=== PATIENT | male | born 1965 | race Caucasian/White ===

== ENCOUNTER 2017-05-22 11:34 | Observation (INO) ==
--- NOTE | 2017-05-22 11:49 | Emergency Department Note ---
Disposition Clinical Impression: Chest pain Qualifiers: Chest pain type: unspecified Qualified Code(s): R07.9 - Chest pain, unspecified Disposition: Admitted As Inpatient Condition: Good Instructions: Chest Wall Pain in Children (ED) Forms: ED Satisfaction Letter Time of Disposition: 12:44 Chest Pain HPI - General Chief Complaint: ED Chest Pain Stated Complaint: chest pain Time Seen by Provider: 05/22/17 11:42 Source: patient, EMS Mode of arrival: EMS Limitations: no limitations Vital Signs Reviewed: Yes Nursing Notes Reviewed: Yes - History of Present Illness HPI Narrative: 52-year-old male who comes in complaining of chest discomfort and feeling worse over the last couple of days. The patient states he has a history of previous UT 4. Ice had no cardiac workup for more than a year. Patient saw his family doctor today who sent him to the ER. Pt complaint: chest pain Onset (ago): day(s) Duration: intermittent Onset: during rest, during exertion Pain Location: substernal, left chest Severity: moderate Severity scale (1-10): 8 Quality: tightness, aching Pain Radiation: none Improves with: nothing Worsens with: nothing Treatments prior to arrival chest pain: none - Related Data Previous Rx's Medication Instructions Recorded Ciprofloxacin HCl [Cipro] 500 mg PO BID #14 tab 10/30/15 Hydrocodone/Acetaminophen [[place] 1 tab PO Q6H PRN #12 tab 10/30/15 5-325 Tablet] Ondansetron ODT [Zofran ODT] 4 mg SL Q6HR PRN #14 tab.rapdis 10/30/15 metroNIDAZOLE [Flagyl] 500 mg PO TID #21 tablet 10/30/15 Cyclobenzaprine [Flexeril] 10 mg PO TID PRN #9 tablet 12/30/15 traMADol [Ultram] 50 mg PO Q6HR #8 tablet 12/30/15 Amoxicillin/Clavulanate [Augmentin] 875 mg PO BIDWM 10 Days tablet 04/02/16 Fluticasone Propionate Nasal 50 mcg NS DAILY #1 bottle 04/02/16 [Flonase] Oxymetazoline [Afrin] 1 spray NS Q12HR PRN #1 bottle 04/02/16 HYDROcodone/Acet 5/325 mg [[place] 1 tab PO Q6H PRN #7 tab 09/21/16 5-325 mg] Allergies Allergy/AdvReac Type Severity Reaction Status Date / Time aspirin [ASA] AdvReac Vomiting Verified 10/30/15 20:44 All systems ED: reviewed and negative except as stated. Constitutional: Denies: fever, chills, weakness, weight change Eyes: Denies: eye pain, eye discharge, vision change ENT ED: Denies: ear pain, throat pain, dental pain, hearing loss, epistaxis, congestion, dysphagia Cardiovascular: Reports: chest pain. Denies: palpitations, dyspnea on exertion , edema, syncope Respiratory: Denies: cough, dyspnea, wheezes, hemoptysis, stridor Gastrointestinal: Denies: abdominal pain, nausea, vomiting, diarrhea, constipation, hematemesis, melena, hematochezia Genitourinary: Denies: urgency, dysuria, frequency, hematuria Musculoskeletal: Denies: back pain, neck pain, arthralgia, myalgia Integumentary: Denies: rash, abrasion, lesions Neurological: Denies: headache, weakness, numbness, paresthesias, confusion, abnormal gait, vertigo Psychiatric: Denies: anxiety, depression, suicidal thoughts, homicidal thoughts , auditory hallucinations, visual hallucinations Endocrine: Denies: fatigue Hematological/Lymphatic: Denies: easy bleeding, easy bruising Allergic/Immunologic: Denies: facial swelling, urticaria Chest Pain PMH - Past Medical History Medical history: Reports: asthma, COPD, CVA, hyperlipidemia, hypertension, myocardial infarction, other Psychiatric history: Reports: no psych history - Social History Smoking Status: Never smoker Alcohol use: Reports: none Drug use: Reports: none Physical Exam - General Limitations: no limitations General appearance: alert, in no apparent distress - Head Head exam: atraumatic, normocephalic, normal inspection - Eye Eye exam: Present: normal appearance, PERRL, EOMI - ENT ENT exam: normal exam, normal oropharynx, mucous membranes moist - Neck Neck exam: Present: normal inspection, full ROM, trachea midline - Chest Chest inspection: Present: normal inspection - Respiratory Respiratory exam: Present: normal lung sounds bilaterally - Cardiovascular Cardiovascular exam: Present: regular rate, normal rhythm, normal heart sounds - Abdominal Exam Abdominal exam: Present: soft, Non-Tender. Absent: tenderness, distention, guarding, rebound, rigidity - Extremities Exam Extremities exam: Present: normal inspection, full ROM. Absent: tenderness, pedal edema - Expanded Lower Extremity Exam Neurovascular/Tendon exam: Present: normal capillary refill - Back Exam Back exam: Present: normal inspection, full ROM. Absent: tenderness - Neurological Exam Neurological exam: Present: alert, oriented X3 - Psychiatric Psychiatric exam: Present: normal affect, normal mood - Skin Skin exam: Present: warm, dry, intact, normal color Course - Reevaluation(s) Reevaluation #1: 52-year-old with a history of previous UT 4 comes in complaining of chest pain. Initial EKG is negative, initial troponin is negative chest x-ray is clear patient will be admitted for rule out. Time: 12:42 - Consultations Consultation #1: Discussed with . Time: 12:43 Vital Signs Temperature 0 F L 05/22/17 11:36 Pulse Rate 0 05/22/17 11:36 Respiratory Rate 18 05/22/17 11:36 Blood Pressure 0/0 05/22/17 11:36 O2 Sat by Pulse Oximetry 0 05/22/17 11:36 Temperature 0 F L 05/22/17 11:36 Pulse Rate 84 05/22/17 12:15 Respiratory Rate 20 05/22/17 12:15 Blood Pressure 145/94 05/22/17 12:15 O2 Sat by Pulse Oximetry 97 05/22/17 12:15 Oxygen Delivery Oxygen Delivery Room Air Chest Pain - Lab Data Result diagrams: 05/22/17 11:45 05/22/17 11:45 Lab Results 05/22/17 05/22/17 05/22/17 Range/Units 11:45 11:45 11:45 WBC 4.2 L (4.3-11.1) K/mcL RBC 4.85 (4.19-5.50) M/mcL Hgb 14.8 (12.9-16.9) g/dL Hct 43.2 (37.5-50.1) % MCV 89.1 (83.0-100.0) fL MCH 30.5 (28.0-33.3) pg MCHC 34.3 (31.6-35.5) g/dL RDW 12.6 (11.5-14.5) % Plt Count 184 (140-400) K/mcL MPV 11.0 (9.4-12.4) fL Immature Gran % 0.2 (0-4) % Seg Neutrophils % 60.3 % Lymphocytes % 26.1 % Monocytes % 10.0 % Eosinophils % 2.4 % Basophils % 1.0 % Neutrophils # 2.5 (1.6-8.9) K/mcL Lymphocytes # 1.1 (0.6-4.6) K/mcL Monocytes # 0.4 (0.0-1.3) K/mcL Eosinophils # 0.1 (0.0-0.6) K/mcL Basophils # 0.0 (0.0-0.2) K/mcL PT 11.5 (9.4-12.1) Seconds INR 1.1 APTT 30.4 (26.0-36.0) Seconds Sodium 138 (136-145) mEq/L Potassium 4.3 (3.5-5.1) mEq/L Chloride 109 H (98-107) mEq/L Carbon Dioxide 25 (23-29) mEq/L BUN 12 (6-20) mg/dL Creatinine 1.05 (0.70-1.30) mg/dL Est GFR ( Amer) > 60 (> 60) Est GFR (Non-Af Amer) > 60 (> 60) BUN/Creatinine Ratio 11 (6-26) Glucose 125 H (70-105) mg/dL Calculated Osmolality 287 (280-300) Calcium 9.5 (8.6-10.3) mg/dL Troponin I < 0.03 (< 0.04) ng/mL - EKG Data EKG attestation: Yes I reviewed and interpreted this EKG. EKG shows normal: sinus rhythm Rate: normal Rhythm: NSR Hood/QRS: normal Interpretation: no acute changes Heart Score - Score History: Moderately Suspicious EKG: Normal Age: 45-65 Risk Factors: Equal/Greater than 3 risk factor or history of atherosclerotic disease Troponin: Less than normal limit HEART Score Total: 4
[2017-05-22 11:59] LABS: Eosinophils # 0.1 K/mcL (0.0-0.6); Eosinophils % 2.4 %; Hematocrit 43.2 % (37.5-50.1); Hemoglobin 14.8 g/dL (12.9-16.9); Immature Granulocytes % 0.2 % (0-4); Lymphocytes # 1.1 K/mcL (0.6-4.6); Lymphocytes % 26.1 %; Mean Corpuscular HGB Conc 34.3 g/dL (31.6-35.5); Mean Corpuscular Hemoglobin 30.5 pg (28.0-33.3); Mean Corpuscular Volume 89.1 fL (83.0-100.0); Monocytes # 0.4 K/mcL (0.0-1.3); Neutrophils # 2.5 K/mcL (1.6-8.9); Platelet Count 184 K/mcL (140-400); Red Blood Count 4.85 M/mcL (4.19-5.50); Red Cell Distribution Width 12.6 % (11.5-14.5); Segmented Neutrophils % 60.3 %
[2017-05-22 12:04] LABS: INR 1.1; Prothrombin Time 11.5 Seconds (9.4-12.1)
[2017-05-22 12:07] LABS: Activated Partial Thrombo Time 30.4 Seconds (26.0-36.0)
[2017-05-22 12:20] LABS: BUN/Creatinine Ratio 11 (6-26); Blood Urea Nitrogen 12 mg/dL (6-20); Calcium 9.5 mg/dL (8.6-10.3); Carbon Dioxide 25 mEq/L (23-29); Chloride 109 mEq/L (98-107); Glucose 125 mg/dL (70-105); Osmolality,Calculated 287 (280-300); Potassium 4.3 mEq/L (3.5-5.1); Sodium 138 mEq/L (136-145); Troponin I < 0.03 ng/mL (< 0.04); eGFR For African Americans > 60 (> 60); eGFR For Non-African Americans > 60 (> 60)
[2017-05-22] MEDS ORDERED: Acetaminophen 325 MG TABLET PO PRN (13:03)
[2017-05-22] MEDS ORDERED: *HR* Promethazine 25 MG/ML VIAL IVP PRN (13:03)
[2017-05-22] MEDS ORDERED: Naloxone 0.4 MG/ML INJ IVP PRN (13:03)
[2017-05-22] MEDS ORDERED: Ondansetron 4 MG/2 ML VIAL IVP PRN (13:03)
[2017-05-22] MEDS ORDERED: Nitroglycerin 0.4 MG TAB.SUBL SL PRN (13:06)
--- NOTE | 2017-05-22 13:27 | Internal Med History&Physical ---
Date of Encounter: 05/22/17 Time of Encounter: 12:20 Assessment and Plan (1) Chest pain Current visit: Yes Status: Acute Will admit the pt into Tele for observation Will place pt on compliance monitor check serial troponin so far negative troponin EKG reviewed showed NSR, no acute ischemic changes noticed Cont pt on Plavix and BB Metoprolol Cont Nitro PRN for pain Will check FLP in AM Will get stress test in AM since pt is high risk for ACS Pt did mention previous [facility]'s with out any interventions, unable to find any records here.. Consulted Card for further eval Qualifiers: Chest pain type: unspecified Qualified Code(s): R07.9 - Chest pain, unspecified (2) HTN (hypertension) Current visit: Yes Status: Acute Stable with home meds Resumed home meds Qualifiers: Qualified Code(s): I10 - Essential (primary) hypertension (3) Obesity (BMI 30-39.9) Current visit: Yes Status: Acute Counseled to loose weight (4) HLD (hyperlipidemia) Current visit: Yes Status: Acute on Statin Qualifiers: Hyperlipidemia type: unspecified Qualified Code(s): E78.5 - Hyperlipidemia , unspecified (5) CAD (coronary artery disease) Current visit: Yes Status: Acute Card consulted Resumed all home meds Qualifiers: Coronary Disease-Associated Artery/Lesion type: [place] artery Associated angina: with stable angina Qualified Code(s): I25.118 - Atherosclerotic heart disease of [place] coronary artery with other forms of angina pectoris Internal Medicine - H&P: HPI Chief complaint: Chest pain Admitted From: Emergency Dept Plans for Post Hospital Care: Home History of present illness: Mr. Tracy is a 52 year old male with known CAD, HTN, HLD and Morbid Obesity who presented to ER with intermittent left chest wall pain since last 2-3 days. Pt stated he does have 5/10 , chest pressure , squeezing like pain, felt someone siting on his chest, radiating to his left arm, not associated with diaphoresis and his pain relived with SL Nitro here in the ER. Pt denied any recent travel, denied any cold / cough with expectoration. His pain is little better now. Past Med Surg Social Fam HX - Past Medical History Medical history: asthma, COPD, CVA, hyperlipidemia, hypertension, myocardial infarction, other Psychiatric history: no psych history - Past Surgical History Surgical History: no surgical history - Social History Smoking Status: Never smoker Smokeless Tobacco Status: No Alcohol use: none Drug use: none - Additional Family History Additional family history: Family hsitory reviewed and non contribuitory to current problem. Internal Medicine - H&P: Meds Albuterol Sulfate [Ventolin Hfa] 2 puff IH Q4H PRN 05/22/17 [History] Atorvastatin [Lipitor] 40 mg PO HS 05/22/17 [History] Clopidogrel [Plavix] 75 mg PO DAILY 05/22/17 [History] Metoprolol XL (24 HR) Succ [Toprol XL] 25 mg PO DAILY 05/22/17 [History] 3 Allergy/AdvReac Type Severity Reaction Status Date / Time aspirin [ASA] AdvReac Vomiting Verified 10/30/15 20:44 All Systems PM: A 10-system review of systems was performed and is negative for pertinent findings except as documented above in the HPI. Review of systems: All the systems are reviewed everything is benign except the systems and symptoms I mentioned in the history of present illness - Constitutional Vitals: Temp Pulse Resp BP Pulse Ox 0 F L 84 20 145/94 97 05/22/17 11:36 05/22/17 12:15 05/22/17 12:15 05/22/17 12:15 05/22/17 12:15 General appearance: Present: cooperative, A&O X 3, no acute distress, answers questions appropriately - Head Head exam: Present: atraumatic, normal inspection - Neck Neck exam general surgery: Present: supple - Respiratory Respiratory exam: Present: decreased breath sounds. Absent: rales, respiratory distress, rhonchi, wheezes - Cardiovascular Cardiovascular exam: Present: RRR, +S1, +S2. Absent: tachycardia - GI/Abdominal GI/Abdominal exam: Present: normal bowel sounds, soft. Absent: rebound, rigid, tenderness - Extremities Exam Extremities exam: Absent: calf tenderness, pedal edema, tenderness - Back Exam Back exam: Absent: CVA tenderness (L), CVA tenderness (R) - Neurological Exam Neurological exam: Present: alert, oriented X3 - Psychiatric Psychiatric exam: Present: normal affect, normal mood - Skin Skin exam: Absent: rash Internal Med - H&P Results - Labs CBC & Chem 7: 05/22/17 11:45 05/22/17 11:45 Labs: Short CBC 05/22/17 Range/Units 11:45 WBC 4.2 L (4.3-11.1) K/mcL Hgb 14.8 (12.9-16.9) g/dL Hct 43.2 (37.5-50.1) % Plt Count 184 (140-400) K/mcL Neutrophils # 2.5 (1.6-8.9) K/mcL BMP 05/22/17 11:45 Sodium 138 Potassium 4.3 Chloride 109 H Carbon Dioxide 25 BUN 12 Creatinine 1.05 Glucose 125 H Calcium 9.5 Cardiac Enzymes 05/22/17 Range/Units 11:45 Troponin I < 0.03 (< 0.04) ng/mL - Impressions ITS Impressions Chest X-Ray 05/22/17 11:45 IMPRESSION: No acute cardiopulmonary disease. D/ / Chris Lynn MD / Chris Lynn MD Interpreting Provider: Chris Lynn MD
--- NOTE | 2017-05-22 14:37 | Electrocardiograph Report ---
[facility] [facility] Test Date: 2017-05-22 Pat Name: Raimundo Tracy Department: 102 Room: Gender: M Siene Maker: Msc : 1965 Requested By: Manas Flannery Order Number: [id number] Reading MD: Keith Mary MD Measurements Intervals [place] Rate: 80 P: 35 NH: 189 QRS: 14 QRSD: 90 T: 33 QT: 342 QTc: 378 Interpretive Statements SINUS RHYTHM wnl Electronically Signed On 05-22-2017 14:35:18 EST by Keith Mary MD
[2017-05-22] MEDS: Metoprolol XL (24 HR) Succ 25 MG TAB.ER.24H PO SCH (18:52)
[2017-05-22] MEDS: *HR* HYDROcodone/Acet 5/325 mg TABLET PO PRN (23:30)
[2017-05-23 01:22] LABS: Chol/HDL Ratio 4.9 (0-4.9)
[2017-05-23] MEDS ORDERED: Regadenoson 0.4 MG/5 ML SYRINGE IVP ONE (07:30)
[2017-05-23] MEDS: Metoprolol XL (24 HR) Succ 25 MG TAB.ER.24H PO SCH (09:40)
--- NOTE | 2017-05-23 14:50 | Internal Med Progress Note ---
Date of Encounter: 05/23/17 Time of Encounter: 14:49 - Assessment and plan (1) Chest pain Current Visit: Yes Status: Acute Assessment and plan: presented with chest pressure for 2-3 days prior to arrival. Has known CAD as noted below. Serial troponins negative. EKG without acute ST changes. Stress test negative for ischemia or infarct. Echocardiogram pending. Adding isosorbide. Obtaining outside hospital left heart catheterization report. Consult cardiology if chest pain persist despite long-acting nitrate Qualifiers: Chest pain type: unspecified Qualified Code(s): R07.9 - Chest pain, unspecified (2) CAD (coronary artery disease) Current Visit: Yes Status: Acute Assessment and plan: hx 4 [address]Is[address] with [address] Victor. Says he has LHC approx one year ago at [facility] [place]. Now with CP as noted above. Stress test negative for ischemia or infarct. Continues to complain of persistent chest pressure. Continue home Plavix, statin, BB. Add isosorbide. Obtain outside hospital left heart catheter records. Consult cardiology if chest pain persists Qualifiers: Coronary Disease-Associated Artery/Lesion type: [place] artery Associated angina: with stable angina Qualified Code(s): I25.118 - Atherosclerotic heart disease of [place] coronary artery with other forms of angina pectoris (3) HLD (hyperlipidemia) Current Visit: Yes Status: Acute Assessment and plan: hx. Cont home statin Qualifiers: Hyperlipidemia type: unspecified Qualified Code(s): E78.5 - Hyperlipidemia , unspecified (4) HTN (hypertension) Current Visit: Yes Status: Acute Assessment and plan: per hx. BP controlled. Cont home BP medication. Monitor BP and titrate PRN Qualifiers: Qualified Code(s): I10 - Essential (primary) hypertension (5) DVT prophylaxis Current Visit: Yes Status: Acute Assessment and plan: heparin - Subjective Interval history: Seen and examined at bedside. Patient is new to me, information obtained from chart review and patient report. Says he still having intermittent chest pressure; located to left chest and radiates to left arm at times. Laying on the left side improves chest pressure, nothing makes worse. Denies shortness of breath. - Constitutional Vitals: Temp Pulse Resp BP Pulse Ox 97.5 F L 112 18 148/94 98 05/23/17 11:06 05/23/17 11:06 05/23/17 11:06 05/23/17 11:06 05/23/17 11:06 General appearance: Present: cooperative, A&O X 3, no acute distress, answers questions appropriately - Head Head exam: Present: atraumatic, normocephalic - Eye Eye exam: Present: PERRL, conjuntiva pink, sclera anicteric Pupils: Present: PERRL - Neck Neck exam general surgery: Present: supple, trachea midline. Absent: lymphadenopathy - Respiratory Respiratory exam: Present: CTAB. Absent: accessory muscle use, rales, rhonchi, wheezes - Cardiovascular Cardiovascular exam: Present: RRR, +S1, +S2. Absent: diastolic murmur, gallop, rubs, systolic murmur - GI/Abdominal GI/Abdominal exam: Present: normal bowel sounds, soft, no peritoneal signs. Absent: distended, tenderness - Extremities Exam Extremities exam: Present: warm, radial pulses palpable and symmetrical. Absent : calf tenderness, cyanotic, pedal edema - Neurological Exam Neurological exam: Present: CN II-XII intact, oriented X3, no focal deficits. Absent: pronater drift, facial droop, speech deficit - Skin Skin exam: Present: dry, intact Internal Medicine: Result - Labs CBC & Chem 7: 05/22/17 11:45 05/22/17 11:45 Labs: Cardiac Enzymes 05/22/17 05/23/17 Range/Units 17:31 00:17 Troponin I < 0.03 < 0.03 (< 0.04) ng/mL - ABG Interpretation ABG results: PT/INR, D-dimer PT 11.5 Seconds (9.4-12.1) 05/22/17 11:45 Consult Discharge Plan - Plan Referrals: Cali Molina MD [Primary Care Provider] -
[2017-05-23] MEDS: Isosorbide MONOnitrate (24 HR) 30 MG TAB.ER.24H PO SCH (17:40)
[2017-05-23] MEDS: *HR* Heparin 5,000 UNIT/ML VIAL SQ SCH (21:26)
[2017-05-23] MEDS: *HR* HYDROcodone/Acet 5/325 mg TABLET PO PRN (21:30)
[2017-05-24] MEDS: *HR* Heparin 5,000 UNIT/ML VIAL SQ SCH (05:20)
[2017-05-24] MEDS: Isosorbide MONOnitrate (24 HR) 30 MG TAB.ER.24H PO SCH (09:12)
[2017-05-24] MEDS: Metoprolol XL (24 HR) Succ 25 MG TAB.ER.24H PO SCH (09:12)
[2017-05-24] MEDS: *HR* HYDROcodone/Acet 5/325 mg TABLET PO PRN (09:18)
--- NOTE | 2017-05-24 15:46 | Discharge Summary ---
Date of Encounter: 05/24/17 Time of Encounter: 15:42 - Discharge Diagnosis (1) Chest pain Priority: Primary Status: Acute Comments: presented with chest pressure for 2-3 days prior to arrival. Has known CAD as noted below. Serial troponins negative. EKG without acute ST changes. TTE with preserved EF, mild diastolic dysfunction no wall motion abnormalities. Stress test negative for ischemia or infarct. He was started on isosorbide with resolution of chest pain. Discussed medical management versus cardiology consultation and patient preferred to continue with medical management. We will follow up with cardiology outpatient. Will likely benefit from [facility] if chest pain persists Qualifiers: Chest pain type: unspecified Qualified Code(s): R07.9 - Chest pain, unspecified (2) CAD (coronary artery disease) Priority: Primary Status: Acute Comments: patient reports 4 prior MIs. [address] with [address] Victor. Per chart review, L 2001 at outside hospital showed non-obstructive CAD. Now with chest pain as noted above. ACS ruled out with negative serial troponins, no acute ST changes on EKG. TTE with preserved EF, mild diastolic dysfunction and no wall motion abnormalities. Stress test negative for ischemia or infarct. Isosorbide started with resolution of chest pain. Continue home Plavix, statin, BB. Add isosorbide. Follow-up with primary sql database programmer within 2 weeks. Qualifiers: Coronary Disease-Associated Artery/Lesion type: [place] artery Associated angina: with stable angina Qualified Code(s): I25.118 - Atherosclerotic heart disease of [place] coronary artery with other forms of angina pectoris (3) HLD (hyperlipidemia) Priority: Secondary Status: Acute Comments: per hx. Cont statin Qualifiers: Hyperlipidemia type: unspecified Qualified Code(s): E78.5 - Hyperlipidemia , unspecified (4) HTN (hypertension) Priority: Secondary Status: Acute Comments: per hx. BP controlled. Cont medication Qualifiers: Qualified Code(s): I10 - Essential (primary) hypertension (5) SSS (sick sinus syndrome) Priority: Secondary Status: Acute Comments: per hx. Has PPM. Follow-up with Cardiology outpatient Hospital course: Mr. Tracy is a 52 year old male with PMH CAD and hypertension who presented to [facility] on 05/22/2017 with complaints of chest pain. He was placed in observation status for further workup and treatment. ACS was ruled out with negative serial troponins, on acute EKG, unremarkable echocardiogram and negative stress test. He was started on isosorbide with resolution and chest pain. He was discharged home in stable condition with outpatient follow-up. Please see assessment and plan for further details. Discharge discussed with: patient - Time Spent with Patient Total time spent providing and/or coordinating discharge services: - Discharge Medications Prescriptions: Isosorbide MONOnitrate (24 HR) [Imdur] 30 mg PO DAILY #30 tab.er.24h Home Medications: Albuterol Sulfate [Ventolin Hfa] 2 puff IH Q4H PRN 05/22/17 [History] Atorvastatin [Lipitor] 40 mg PO HS 05/22/17 [History] Clopidogrel [Plavix] 75 mg PO DAILY 05/22/17 [History] Metoprolol XL (24 HR) Succ [Toprol Xl] 25 mg PO DAILY 05/22/17 [History] Isosorbide MONOnitrate (24 HR) [Imdur] 30 mg PO DAILY #30 tab.er.24h 05/24/17 [ Rx] Allergies/Adverse Reactions: 3 Allergy/AdvReac Type Severity Reaction Status Date / Time aspirin [ASA] AdvReac Vomiting Verified 10/30/15 20:44 Date of admission: 05/22/17 16:42 Primary care physician: Cali Molina MD Consults: 05/22/17 17:39 Consult to Respiratory Technician [CONS] Routine Reason for SW Consult: financial concerns Discharging clinician: Diane Garcia Anticipated date of discharge: 05/24/17 - Constitutional Vitals: Temp Pulse Resp BP Pulse Ox 97.7 F 61 16 117/66 95 05/24/17 11:00 05/24/17 11:00 05/24/17 11:00 05/24/17 11:00 05/24/17 11:00 General appearance: Present: cooperative, A&O X 3, no acute distress, answers questions appropriately - Patient Status Disposition: Home, Self-Care Condition: Good Functional capacity at discharge: independent ambulation Overall status at discharge: patient is back to baseline - Discharge Instructions Instructions: Chest Pain (DC), Isosorbide Mononitrate (By mouth) Follow Up With: Cali Molina MD [Primary Care Provider] - - Diet and Activity Activity: increase activity as tolerated Diet: low fat, low cholesterol
[2017-05-24 15:49] VITALS: BP 120/61
== END 2017-05-24 18:21 | disposition home or self-care (01) ==
LOC: EMEROO 11:34 → 3BNU 11:34
PROVIDERS: ADMIT Family Medicine; ATTEND Registered Nurse

== ENCOUNTER 2018-08-07 11:16 | Observation (INO) ==
[2018-08-07 11:52] LABS: Hematocrit 40.3 % (37.5-50.1); Hemoglobin 14.1 g/dL (12.9-16.9); Mean Corpuscular Hemoglobin 31.2 pg (28.0-33.3); Mean Corpuscular Volume 89.2 fL (83.0-100.0); Mean Platelet Volume 10.8 fL (9.4-12.4); Platelet Count 194 K/mcL (140-400); Red Blood Count 4.52 M/mcL (4.19-5.50); Red Cell Distribution Width 12.2 % (11.5-14.5)
--- NOTE | 2018-08-07 11:54 | Emergency Department Note ---
Disposition Clinical Impression: Weakness Disposition: Admitted As Inpatient Condition: Good Time of Disposition: 13:48 General Adult HPI - General Chief complaint: ED Neuro Symptoms/Deficit Stated complaint: WATSON, Numbness Time Seen by Provider: 08/07/18 11:19 Source: patient Mode of arrival: private vehicle Limitations: no limitations Nursing Notes Reviewed: Yes Vital Signs Reviewed: Yes - History of Present Illness HPI Narrative: 53-year-old male with past medical history of previous CVA in 2001, as well as pacemaker placement in 2001 at [facility]. Patient states that for the last week he has felt somewhat general weakness and then yesterday he complains that he stood up too quickly and fell backward into his stool. He did not lose consciousness, did not hit his head, has not vomited since then. The patient then developed a left-sided headache that came on somewhat gradually and then became its most intense after about an hour. The patient is then complaini ng of waking up this morning around 7:30 AM and noting that he had some right hand weakness. The patient has left-sided deficits from his previous CVA, he states that his left hand and left leg are somewhat more weak than the right. Patient is also complaining of 3-4 weeks of increased blood pressures. She really patient is complaint of 3-4 weeks of left-sided chest pressure that is made worse with exertion. He is also endorsing some exertional shortness of breath. However the complaint that brought him in today was the subjective right-sided weakness. Pain Scale: 7 - Related Data Home Medications Medication Instructions Recorded Confirmed Albuterol Sulfate [Ventolin Hfa] 2 puff IH Q6H PRN 05/22/17 08/07/18 Atorvastatin [Lipitor] 40 mg PO 05/22/17 08/07/18 Clopidogrel [Plavix] 75 mg PO 05/22/17 08/07/18 Amlodipine Besylate 10 mg PO 08/07/18 08/07/18 Fluticasone Propionate Nasal 2 spray NS 08/07/18 08/07/18 [Flonase] Furosemide [Lasix] 20 mg PO [facility] 08/07/18 08/07/18 Isosorbide MONOnitrate (24 HR) 30 mg PO [facility] 08/07/18 08/07/18 [Imdur] Metoprolol Succinate [Toprol Xl] 50 mg PO [facility] 08/07/18 08/07/18 Allergies Allergy/AdvReac Type Severity Reaction Status Date / Time aspirin [ASA] AdvReac UPSET Verified 08/07/18 16:08 STOMACH/ THROAT CLOSES UP Review of Systems: In addition to that documented in the HPI above, the additional ROS was obtained: Constitutional: Denies fevers or chills Eyes: Reports vision changes - somewhat more blurry vision in left eye compared to right ENMT: Denies sore throat CV: Reports chest pressure for the last several weeks, left sided, worse with exertion Resp: Reports exertional SOB GI: Denies vomiting or diarrhea : Denies painful urination MSK: Denies recent trauma Skin: Denies new rashes Neuro: Reports new right sided hand weakness, new left facial numbness since 729 this am, but overall weakness for the last several weeks Endocrine: Denies unexpected weight loss Heme: Reports being on plavix for pacemaker placement in 2001 Past Medical History - Past Medical History Attestation: Yes The following information was validated with the patient. Medical history: Reports: asthma, COPD, CVA, hyperlipidemia, hypertension, myocardial infarction, other Surgical history: Reports: pacemaker Psychiatric history: Reports: no psych history - Social History Smoking Status: Never smoker Smokeless Tobacco Status: No Alcohol use: Reports: none Drug use: Reports: none Physical Exam General: A&O x 3. No acute distress. Well developed, well nourished. Head: atraumatic, normocephalic. ENT: No conjunctival injection, no scleral icterus. PERRLA. EOMI. Oropharynx non- erythematous. mucous membranes moist. Neuro: No speech deficit, no facial droop, mentating well. Sensation in left side of face, left arm, and left leg decreased when compared to right side, but still able to sense light touch. CN II-XII intact. Cerebellar testing with heel to anderson intact bilaterally, with some weakness of left leg. Pulm: Lungs CTAB A/P. No wheezes, rales, ronchi. Cardio: RRR no m/r/g. Chest not tender to palpation. Abd: Soft, non-distended. Normoactive bowel sounds. Non-tender to palpation. No guarding. Non rigid. Extremities: Radial pulses 2+ víctor, dorsalis pedis/posterior tibialis 2+ víctor. No LE edema. No cyanosis, clubbing. Skin: warm, dry, intact. No rashes. Psych: Appropriate mood and affect. Answers questions appropriately. Cooperative with exam. - General Limitations: no limitations General appearance: alert, in no apparent distress Course Vital Signs Temperature 97.8 F 08/07/18 11:20 Pulse Rate 59 08/07/18 11:20 Respiratory Rate 18 08/07/18 11:20 Blood Pressure 127/85 08/07/18 11:20 O2 Sat by Pulse Oximetry 100 08/07/18 11:20 Temperature 97.8 F 08/07/18 11:20 Pulse Rate 59 08/07/18 11:20 Respiratory Rate 18 08/07/18 11:20 Blood Pressure 127/85 08/07/18 11:20 O2 Sat by Pulse Oximetry 100 08/07/18 11:20 Oxygen Delivery Oxygen Delivery Room Air Medical Decision Making - MDM Narrative Medical decision making narrative: Patient's chest x-ray did not show any acute cardiopulmonary findings. His EKG did not show some findings concerning for ischemia, the only change in his EKG was a prolonged OK interval at 220 which was not present on his previous EKG, however the patient has a pacemaker. Lab work was unremarkable, head CT did not show any acute intracranial findings. Patient's neurologic symptoms persisted, and it was thought the patient would benefit from further inpatient workup and treatment of his new onset neurologic symptoms as well as his persistent left- sided chest pain and pressure for the last 3-4 weeks. Patient was admitted to the hospitalist Dr. Vinson, who agreed to accept the patient to their service. Patient was given an opportunity to ask questions at bedside and all of their concerns were addressed. Patient verbalized understanding and agreement with plan of care. Pt remained stable while in the department. - Medical Records Medical records reviewed: Yes I reviewed the patient's medical records. - Lab Data Lab results reviewed: Yes I reviewed the patient's lab results. Result diagrams: 08/07/18 11:46 08/07/18 11:46 Lab Results 08/07/18 08/07/18 08/07/18 Range/Units 11:46 11:46 11:46 WBC 4.4 (4.3-11.1) K/mcL RBC 4.52 (4.19-5.50) M/mcL Hgb 14.1 (12.9-16.9) g/dL Hct 40.3 (37.5-50.1) % MCV 89.2 (83.0-100.0) fL MCH 31.2 (28.0-33.3) pg MCHC 35.0 (31.6-35.5) g/dL RDW 12.2 (11.5-14.5) % Plt Count 194 (140-400) K/mcL MPV 10.8 (9.4-12.4) fL PT 12.1 (9.4-12.1) Seconds INR 1.1 APTT 31.5 (26.0-36.0) Seconds Sodium 138 (136-145) mEq/L Potassium 3.9 (3.5-5.1) mEq/L Chloride 107 (98-107) mEq/L Carbon Dioxide 25 (23-29) mEq/L BUN 18 (6-20) mg/dL Creatinine 0.99 (0.70-1.30) mg/dL Est GFR ( Amer) > 60 (> 60) Est GFR (Non-Af Amer) > 60 (> 60) BUN/Creatinine Ratio 18 (6-26) Glucose 130 H (70-105) mg/dL Calculated Osmolality 290 (280-300) Calcium 8.9 (8.6-10.3) mg/dL Creatine Kinase 146 (30-223) Units/L Troponin I < 0.03 (< 0.04) ng/mL - Radiology Data Radiology results reviewed: Yes I reviewed the patient's radiology results. Head CT 08/07/18 11:35 IMPRESSION: No acute intracranial abnormality. D/ / José Jauregui MD / José Jauregui MD Interpreting Provider: José Jauregui MD - EKG Data EKG #1 EKG attestation: Yes I reviewed and interpreted this EKG. EKG results narrative: Heart rate 60, rhythm sinus, axis normal. OK 210 and prolonged, QRS 94, QTC 403. No clinically significant ST elevation or depression. Prolonged OK interval is new since previous study dated 05/22/2017. Attestation Statement - Attestation Attestation: I, Osmany Budi, examined this patient and my medical decision-making was reviewed with the INTERNAL REVIEW AND AUDIT COMPLIANCE/PA/Advanced Practice Nurse/Resident Physician. I agree with the documented findings, disposition and treatment plan as described except to the extent set forth below. 53-year-old male presents emergency Department with multiple complaints. Patient states he has a history of CVA which left him with left-sided deficits. Patient has what he describes as worse in the left upper extremity weakness but also weakness of the right upper extremity over the past week. Within the past 24 hours here reports having left-sided chest pain which did not radiate and was not associated with diaphoresis or syncope or palpitations. CT of the head was negative for acute intra-or hemorrhage. Laboratory evaluation reveals significant abnormality. Initial troponin was negative. Really EKG does not show evidence of acute STEMI. Patient will be admitted to hospitalist for further care and evaluation.
[2018-08-07 12:03] LABS: INR 1.1; Prothrombin Time 12.1 Seconds (9.4-12.1)
[2018-08-07 12:05] LABS: Activated Partial Thrombo Time 31.5 Seconds (26.0-36.0)
[2018-08-07 12:16] LABS: BUN/Creatinine Ratio 18 (6-26); Blood Urea Nitrogen 18 mg/dL (6-20); Calcium 8.9 mg/dL (8.6-10.3); Carbon Dioxide 25 mEq/L (23-29); Chloride 107 mEq/L (98-107); Creatine Kinase 146 Units/L (30-223); Glucose 130 mg/dL (70-105); Osmolality,Calculated 290 (280-300); Potassium 3.9 mEq/L (3.5-5.1); Sodium 138 mEq/L (136-145); eGFR For Non-African Americans > 60 (> 60)
[2018-08-07 12:17] LABS: Troponin I < 0.03 ng/mL (< 0.04)
[2018-08-07] MEDS ORDERED: Ondansetron 4 MG/2 ML VIAL IVP PRN (15:37)
[2018-08-07] MEDS ORDERED: *HR* OxyCODONE Immed Rel 5 MG TABLET PO PRN (15:37)
[2018-08-07] MEDS ORDERED: Naloxone 0.4 MG/ML INJ IVP PRN (15:37)
--- NOTE | 2018-08-07 16:04 | Internal Med History&Physical ---
Date of Encounter: 08/07/18 Time of Encounter: 14:50 Internal Medicine - H&P: HPI Chief complaint: headache, numbness in bilateral hands Admitted From: Home Plans for Post Hospital Care: Home History of present illness: Mr. Tracy is a 53 year old male with PMH of HTN, CAD, HLD, obesity, CVA with residual left sided weakness, CHF, COPD who presents to the ER for evaluation of worsening left sided headache and bilateral hand numbness. Pt states he was in his usual state of health until yesterday evening when he started having severe left sided throbbing headache. He states he took tramadol without much relief. He woke up this morning and noted to have weakness/numbness in bilateral hands. 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 He reports of having residual left upper and lower extremity weakness from his previous CVA but the right hand weakness is new. Also reports of photosensitivity to left eye and denies any hx of headaches or migraines in the past. Also states he chronically feels diffuse intermittent chest pressure without any alleviating or exacerbating factors. He also notes worsening of bilateral pedal edema despite taking his home dose of lasix. Denies any vision changes, dizziness, lightheadedness, shortness of breath, abd pain, n/v, fever, or chills at this time. No neck pain or stiffness reported. States his current presentation is different from his prior CVA episodes. Ten point ROS is negative except as listed above. Past Med Surg Social Fam HX - Past Medical History Medical history: asthma, COPD, CVA, hyperlipidemia, hypertension, myocardial infarction, other Additional medical history: L sided weakness from pat CVA Psychiatric history: no psych history - Past Surgical History Surgical History: pacemaker Additional surgical history: back surgery, arm surgery - Social History Smoking Status: Never smoker Smokeless Tobacco Status: No Alcohol use: none Drug use: none Internal Medicine - H&P: Meds Albuterol Sulfate [Ventolin Hfa] 2 puff IH Q4H PRN 05/22/17 [History] Atorvastatin [Lipitor] 40 mg PO HS 05/22/17 [History] Clopidogrel [Plavix] 75 mg PO HS 05/22/17 [History] Amlodipine Besylate 10 mg PO HS 08/07/18 [History] Fluticasone Propionate Nasal [Flonase] 2 spray NS HS 08/07/18 [History] Furosemide [Lasix] 20 mg PO QAM 08/07/18 [History] Isosorbide MONOnitrate (24 HR) [Imdur] 30 mg PO QAM 08/07/18 [History] Metoprolol Succinate [Toprol Xl] 50 mg PO QAM 08/07/18 [History] Allergy/AdvReac Type Severity Reaction Status Date / Time aspirin [ASA] AdvReac Vomiting Verified 10/30/15 20:44 All Systems PM: A 10-system review of systems was performed and is negative for pertinent findings except as documented above in the HPI. Review of systems: Ten point ROS is negative except as listed in HPI - Constitutional Vitals: Temp Pulse Resp BP Pulse Ox 97.8 F 56 14 111/77 99 08/07/18 11:20 08/07/18 14:52 08/07/18 14:52 08/07/18 14:52 08/07/18 14:52 Exam: General: No acute distress, AAO x 3, obese HEENT: EOMI, PERRLA, NC/AT, no scleral icterus Respiratory: Clear to auscultate bilaterally, no wheezing, no rales Cardiovascular: Regular, Rate, Rhythm, No murmurs GI: Soft, Non tender, non distended, normal bowel sounds Ext: bilatera pedal edema, no tenderness, positive pulses Neuro: AAO x 3, CN II-XII grossly intact, b/l distal upper extremity weakness noted Rest of the clinical exam is noncontributory Internal Med - H&P Results - Labs CBC & Chem 7: 08/07/18 11:46 08/07/18 11:46 Labs: Short CBC 08/07/18 Range/Units 11:46 WBC 4.4 (4.3-11.1) K/mcL Hgb 14.1 (12.9-16.9) g/dL Hct 40.3 (37.5-50.1) % Plt Count 194 (140-400) K/mcL BMP 08/07/18 11:46 Sodium 138 Potassium 3.9 Chloride 107 Carbon Dioxide 25 BUN 18 Creatinine 0.99 Glucose 130 H Calcium 8.9 Cardiac Enzymes 08/07/18 Range/Units 11:46 Troponin I < 0.03 (< 0.04) ng/mL - Impressions ITS Impressions Head CT 08/07/18 11:35 IMPRESSION: No acute intracranial abnormality. D/ / José Jauregui MD / José Jauregui MD Interpreting Provider: José Jauregui MD - Summary of Assessment and Plan Summary of Assessment and Plan: Mr. Tracy is a 53 year old male with PMH of HTN, CAD, HLD, obesity, CHF, CVA with residual left sided weakness, COPD who presents to the ER for evaluation of worsening left sided headache and bilateral hand numbness. Assessment/Plan: 1. Headache/b/l upper extremity weakness/numbness concerning for TIA vs. CVA Unable to obtain MRI due to pacemaker f/u 2D echo, carotid doppler will initiate diet once pt clears bedside speech evaluation pt reports allergy to aspirin continue home dose of Plavix and statin tele monitoring f/u lipid panel, HbA1C neurology evaluation PT/OT evaluation 2. Headache pain control anti-emetic support as needed 3. Chest pressure pt had a stress test in Mar 2018 which was negative for ischemia will f/u repeat 2D echo monitor serial TNI continue plavix and statin therapy consider cardiology evaluation based on above findings hx of CAD: continue home medications 4. B/L Pedal Edema hx of CHF will start Lasix 40mg IV qdaily fluid restriction diet monitor daily weight and I/Os f/u 2D echo Chronic Co-morbidities: CAD, HTN, HLD, CHF: continue home medications DVT ppx: Heparin SQ LOS < 2 midnights Care plan discussed with patient - Time Spent With Patient Total time spent is greater than 50% in coordination of care (as documented) at patient's floor/unit and/or counseling patient: 25 - 35 minutes
[2018-08-07] MEDS: *HR* HYDROcodone/Acet 5/325 mg TABLET PO PRN (17:28)
[2018-08-07] MEDS: Furosemide 40 MG/4 ML VIAL IVP SCH (17:28)
[2018-08-07] MEDS: *HR* Heparin 5,000 UNIT/ML VIAL SQ SCH (17:32)
[2018-08-07] MEDS: amLODIPine 5 MG TABLET PO SCH (20:07)
[2018-08-07] MEDS: Fluticasone Propionate Nasal 50 MCG/SPRAY BOTTLE NS SCH (20:08)
[2018-08-08 01:10] LABS: Basophils # 0.1 K/mcL (0.0-0.2); Basophils % 1.2 %; Eosinophils # 0.2 K/mcL (0.0-0.6); Eosinophils % 3.7 %; Hematocrit 39.6 % (37.5-50.1); Hemoglobin 13.9 g/dL (12.9-16.9); Immature Granulocytes % 0.2 % (0-4); Lymphocytes # 1.6 K/mcL (0.6-4.6); Lymphocytes % 33.4 %; Mean Corpuscular HGB Conc 35.1 g/dL (31.6-35.5); Mean Corpuscular Hemoglobin 31.2 pg (28.0-33.3); Mean Corpuscular Volume 88.8 fL (83.0-100.0); Mean Platelet Volume 11.2 fL (9.4-12.4); Monocytes # 0.6 K/mcL (0.0-1.3); Monocytes % 12.5 %; Neutrophils # 2.4 K/mcL (1.6-8.9); Platelet Count 183 K/mcL (140-400); Red Blood Count 4.46 M/mcL (4.19-5.50); Red Cell Distribution Width 12.3 % (11.5-14.5)
[2018-08-08 01:12] LABS: Estimated Average Glucose 117 mg/dl; Hemoglobin A1C 5.7 %
[2018-08-08 01:31] LABS: Alanine Aminotransferase 23 Units/L (7-52); Albumin/Globulin Ratio 1.5 (1.1-2.2); Alkaline Phosphatase 66 Units/L (34-104); Aspartate Amino Transferase 17 Units/L (13-39); BUN/Creatinine Ratio 17 (6-26); Bilirubin,Total 1.2 mg/dL (0.3-1.0); Blood Urea Nitrogen 16 mg/dL (6-20); Calcium 8.8 mg/dL (8.6-10.3); Carbon Dioxide 26 mEq/L (23-29); Chloride 108 mEq/L (98-107); Chol/HDL Ratio 4.7 (0-4.9); Cholesterol 131 mg/dL (< 200); Globulin 2.6 g/dL (2.4-3.5); Glucose 94 mg/dL (70-105); HDL Cholesterol 28 mg/dL (40-59); LDL Cholesterol,Calculated 74 mg/dL (0-99); Magnesium 2.1 mg/dL (1.6-2.6); Osmolality,Calculated 285 (280-300); Phosphorous 3.5 mg/dL (2.7-4.5); Potassium 3.5 mEq/L (3.5-5.1); Sodium 137 mEq/L (136-145); Total Protein 6.6 g/dL (6.4-8.9); Triglycerides 144 mg/dL (< 150); eGFR For Non-African Americans > 60 (> 60)
[2018-08-08] MEDS: *HR* Heparin 5,000 UNIT/ML VIAL SQ SCH ×2 (07:00→16:26)
[2018-08-08] MEDS ORDERED: Furosemide 20 MG TABLET PO SCH (09:00)
--- NOTE | 2018-08-08 09:40 | Electrocardiograph Report ---
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
--- NOTE | 2018-08-08 10:33 | Neurology - Consult Note ---
<Basilia Nuñez I - Last Filed: 08/08/18 12:09> Date of Encounter: 08/08/18 Assessment and Plan (1) Weakness Current Visit: Yes Status: Acute (2) Occipital neuralgia Current Visit: Yes Status: Acute I have personally performed a face to face diagnostic evaluation, including HPI, EXAM, which is included in the Assesment and plan, which was discussed with Naveed Adams CNP, I agree with the above outlined documentation. Patient with left temporal occipital headaches with tenderness in the left cervical occipital area consistent with occipital neuralgia as spasms of the neck and head muscles. No other focal findings on neurological examination Imaging studies has been negative for any bleeding or infarct Conservative treatment may follow-up in neurology clinic as an outpatient for possible occipital nerve block Basilia Nuñez MD. NeurologyI Qualifiers: Laterality: left Qualified Code(s): M54.81 - Occipital neuralgia History of Present Illness HPI: Mr. Tracy is a 53 year old male Medications and Allergies Albuterol Sulfate [Ventolin Hfa] 2 puff IH Q6H PRN 05/22/17 [History] Atorvastatin [Lipitor] 40 mg PO HS 05/22/17 [History] Clopidogrel [Plavix] 75 mg PO HS 05/22/17 [History] Amlodipine Besylate 10 mg PO HS 08/07/18 [History] Fluticasone Propionate Nasal [Flonase] 2 spray NS HS 08/07/18 [History] Furosemide [Lasix] 20 mg PO QAM 08/07/18 [History] Isosorbide MONOnitrate (24 HR) [Imdur] 30 mg PO QAM 08/07/18 [History] Metoprolol Succinate [Toprol Xl] 50 mg PO QAM 08/07/18 [History] Allergy/AdvReac Type Severity Reaction Status Date / Time aspirin [ASA] AdvReac UPSET Verified 08/07/18 16:08 STOMACH/ THROAT CLOSES UP All Systems: The remainder of the systems were reviewed and are negative Physical Examination - Vital Signs Vital Signs: Initial Vital Signs Temp Pulse Resp BP Pulse Ox 97.8 F 59 18 127/85 100 08/07/18 11:20 08/07/18 11:20 08/07/18 11:20 08/07/18 11:20 08/07/18 11:20 Results - Laboratory Findings CBC and BMP: 08/08/18 00:23 08/08/18 00:23 Abnormal lab findings: Abnormal lab results Chloride 108 mEq/L (98-107) H 08/08/18 00:23 Glucose 130 mg/dL (70-105) H 08/07/18 11:46 POC Glucose 122 mg/dL (70-99) H 08/07/18 11:22 5.7 % (-5.6) H 08/08/18 00:23 1.2 mg/dL (0.3-1.0) H 08/08/18 00:23 28 mg/dL (40-59) L 08/08/18 00:23 Consult Discharge Plan - Plan Referrals: Cali Molina MD [Primary Care Provider] - (Appointment has been requsted.) <Naveed Adams - Last Filed: 08/08/18 14:34> Date of Encounter: 08/08/18 Time of Encounter: 10:27 Assessment and Plan (1) Weakness Current Visit: Yes Status: Acute Neuro consulted for weakness/numbness in bilateral hands Symptoms are somewhat improved this morning CT of head negative for acute ischemia Unable to obtain MRI for the patient due to pacemaker Echocardiogram unremarkable, carotid duplex scan unremarkable With improving symptoms I do not suspect an acute neurovascular etiology of weakness There are no findings on exam that would make me suspect an acute demyelinating process and HPI also does not make me suspect an acute demyelinating process. Also, exam findings do not make me think of a spinal etiology either. My exam findings do not reveal any obvious gross motor deficits or weakness and overall is nonfocal. With symptoms occurring with headache and history of migraine consider atypical migrainous cause of symptoms. He is improving as of this morning. Consider PT/OT consultation for further evaluation of weakness. Neurology will sign off. (2) Occipital neuralgia Current Visit: Yes Status: Acute left sided temporal and occipital tenderness to palpation With sudden onset of left-sided headache consider occipital neuralgia We will trial a five-day course of steroids and start him on gabapentin now Follow-up with PCP in one week of discharge to evaluate effectiveness of treatment Qualifiers: Qualified Code(s): M54.81 - Occipital neuralgia History of Present Illness Chief complaint: Left-sided weakness and bilateral hand numbness, headache HPI: Mr. Tracy is a 53 year old male with a PMH significant for HTN, CAD, HLD, obesity, CVA 4, TX 4, CHF. He presents to the ED for evaluation of worsening left-sided headache, bilateral hand numbness and worsening of residual left- sided weakness. He reports that he was in his usual state of health until yesterday evening when he began experiencing a sudden left-sided throbbing headache. He has a h/o migraines but notes that the h/a is atypical of his migraine presentation. He states that soon after the headache began he started to have increasing left-sided weakness beyond his baseline state, further, he began to experience bilateral hand numbness and tingling and right hand weakne ss. He denies any visual disturbances, dizziness, tinnitus, ear fullness, dysphagia, dysarthria. At the time of my assessment this morning he reports that his symptoms are improving but he is not back to baseline. His concern is this time are in regards to left temporal and occipital tenderness to palpation. The neurological exam was positive for residual left-sided weakness but otherwise nonfocal. He is unable to have an MRI of the brain due to a noncompatible pacemaker per his report. CT of the head was completed in the ED was negative for acute intracranial abnormality. A limited echo reveals an EF of 55-60%, no segmental dysfunction. Carotid duplex scan shows nonstenotic plaque bilaterally. Past Med Surg Social Fam HX - Past Medical History Medical history: asthma, COPD, CVA, hyperlipidemia, hypertension, myocardial infarction, other Additional medical history: L sided weakness from pat CVA Psychiatric history: no psych history - Past Surgical History Surgical History: pacemaker Additional surgical history: back surgery, arm surgery - Social History Smoking Status: Never smoker Smokeless Tobacco Status: No Alcohol use: none Drug use: none - Family History Mother Living Status: Hx Family Cardiac Disorders: Yes Father Living Status: Hx Family Cardiac Disorders: Yes All Systems: The remainder of the systems were reviewed and are negative Review of Systems: REVIEW OF SYSTEMS NEUROLOGIC: Negative for any blurry vision, blind spots, double vision, facial asymmetry, dysphagia, dysarthria, hemiparesis, vertigo Positive-increasing weakness beyond residual left-sided deficits (he notes this is improving but he is not back to baseline). Additionally, he is having b ilateral hand weakness and numbness CARDIAC: Negative for any chest pain, dyspnea or palpitations MUSCULOSKELETAL: Positive-loss of strength to right hand (he notes that symptoms are improving) Physical Examination - Vital Signs Vital Signs: Initial Vital Signs Temp Pulse Resp BP Pulse Ox 97.8 F 59 18 127/85 100 08/07/18 11:20 08/07/18 11:20 08/07/18 11:20 08/07/18 11:20 08/07/18 11:20 - Exam Exam: Examination: General Examination: *CONSTITUTIONAL: Alert and oriented x3, no acute distress *GENERAL APPEARANCE OF PATIENT appears healthy and well groomed *EYES: pupils equal, round, reactive to light and accommodation, conjunctiva clear without masses or ulcerations, fundi normal. *CARDIOVASCULAR no peripheral edema, distal temperature normal, dorsalis pedis pulses normal. 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 No abnormal movements, fasciculations or atrophy identified. Neurological: *ORIENTATION to person, situation, time and place *RECURRENT AND REMOTE MEMORY intact *ATTENTION AND CONCENTRATION are normal *LANGUAGE FUNCTION no significant aphasia or dysarthia was noted. *FUND OF KNOWLEDGE aware of current events, past history, vocabulary *MENTAL attention span and concentration normal. *CN II optic fundi were normal, no papilledema noted. *CN III,IV, PERRLA extraocular eye movements were full, no nystagmus and no ptosis noted. *CN V shows normal sensation and jaw opens symmetrically. *CN VII shows normal facial movement symmetrically, upper and lower bilaterally. *CN VIII shows no significant hearing loss on exam *CN IX,,X palate elevated symmetrically *CN XI normal strength in the sternocleidomastoid muscles, symmetrical shoulder shrugging. *CN XII tongue protruded in the midline, with normal strength and movement. *SENSORY EXAMINATION light touch intact *REFLEXES: deep tendon reflexes were normal and symmetrical , grade 2/4 diffusely, no pathological reflexes were noted. *CEREBELLAR TESTING normal finger to nose, heel/knee/anderson *PAIN LEVEL 0/10 Results - Laboratory Findings CBC and BMP: 08/08/18 00:23 08/08/18 00:23 Abnormal lab findings: Abnormal lab results Chloride 108 mEq/L (98-107) H 08/08/18 00:23 Glucose 130 mg/dL (70-105) H 08/07/18 11:46 POC Glucose 122 mg/dL (70-99) H 08/07/18 11:22 5.7 % (-5.6) H 08/08/18 00:23 1.2 mg/dL (0.3-1.0) H 08/08/18 00:23 28 mg/dL (40-59) L 08/08/18 00:23
[2018-08-08] MEDS: Isosorbide MONOnitrate (24 HR) 30 MG TAB.ER.24H PO SCH (10:40)
[2018-08-08] MEDS: Furosemide 40 MG/4 ML VIAL IVP SCH (10:40)
--- NOTE | 2018-08-08 14:33 | Internal Med Progress Note ---
Hospitalist Progress Note - Encounter Date of Encounter: 08/08/18 Time of Encounter: 14:31 - Subjective Interval History: Patient seen and examined earlier today. Eating lunch, resting in bed and reports improvement in his symptoms compared to previous day. States his headache persists but improved. No photophobia reported. Pt's pedal edema improved from previous day. Ten point ROS is negative except as listed above No overnight events reported - Exam Vitals: Temp Pulse Resp BP Pulse Ox 97.9 F 61 16 126/86 97 08/08/18 11:48 08/08/18 11:48 08/08/18 11:48 08/08/18 11:48 08/08/18 11:48 Exam: General: No acute distress, AAO x 3, obese HEENT: EOMI, PERRLA, NC/AT, no scleral icterus Respiratory: Clear to auscultate bilaterally, no wheezing, no rales Cardiovascular: Regular, Rate, Rhythm, No murmurs GI: Soft, Non tender, non distended, normal bowel sounds Ext: bilateral pedal edema, no tenderness, positive pulses Neuro: AAO x 3, CN II-XII grossly intact, b/l distal upper extremity weakness noted Rest of the clinical exam is noncontributory - Summary of Assessment and Plan Summary of Assessment and Plan: Mr. Tracy is a 53 year old male with PMH of HTN, CAD, HLD, obesity, CHF, CVA with residual left sided weakness, COPD who presents to the ER for evaluation of worsening left sided headache and bilateral hand numbness. Assessment/Plan: 1. Headache/b/l upper extremity weakness/numbness concerning for TIA vs. CVA TIA/CVA workup negative, findings concerning for occipital neuralgia Neurology input appreciated pt started on prednisone and gabapentine 2D echo, carotid doppler reviewed continue home dose of Plavix and statin 2. Headache pain control anti-emetic support as needed 3. Chest pressure pt had a stress test in Mar 2018 which was negative for ischemia resolved 2D echo reviewed serial TNI negative continue plavix and statin therapy hx of CAD: continue home medications 4. B/L Pedal Edema hx of CHF continue Lasix 40mg IV qdaily will switch to PO lasix in am fluid restriction diet monitor daily weight and I/Os Chronic Co-morbidities: CAD, HTN, HLD, CHF: continue home medications tentative d/c in am DVT ppx: Heparin SQ Care plan discussed with patient/RN/consulting provider - Time Spent with Patient Total time spent is greater than 50% in coordination of care (as documented) at patient's floor/unit and/or counseling patient: 25 - 35 minutes Internal Medicine: Result - Labs CBC & Chem 7: 08/08/18 00:23 08/08/18 00:23 Labs: Short CBC 08/08/18 Range/Units 00:23 WBC 4.9 (4.3-11.1) K/mcL Hgb 13.9 (12.9-16.9) g/dL Hct 39.6 (37.5-50.1) % Plt Count 183 (140-400) K/mcL Neutrophils # 2.4 (1.6-8.9) K/mcL BMP 08/08/18 00:23 Sodium 137 Potassium 3.5 Chloride 108 H Carbon Dioxide 26 BUN 16 Creatinine 0.96 Glucose 94 Calcium 8.8 Cardiac Enzymes 08/07/18 08/08/18 Range/Units 17:38 00:23 Troponin I < 0.03 < 0.03 (< 0.04) ng/mL Liver Function 08/08/18 Range/Units 00:23 Total Bilirubin 1.2 H (0.3-1.0) mg/dL AST 17 (13-39) Units/L ALT 23 (7-52) Units/L Alkaline Phosphatase 66 (34-104) Units/L Albumin 4.0 (3.5-5.7) g/dL - ABG Interpretation ABG results: PT/INR, D-dimer PT 12.1 Seconds (9.4-12.1) 08/07/18 11:46 - Impressions Impressions Echocardiogram Limited Views 08/07/18 15:38 Impressions: LVEF 55-60%. No segmental dysfunction. The pericardium appears normal. Left Ventricular Wall Motion: Rest Echo Findings All wall segments showed normal motion. Findings: Study Quality * Technically adequate exam. ECG Findings * Sinus bradycardia. Left Ventricle * LVEF 55-60%. * No segmental dysfunction. Pericardium * The pericardium appears normal. Consult Discharge Plan - Plan Referrals: Cali Molina MD [Primary Care Provider] - (Appointment has been requsted.)
[2018-08-08] MEDS: Gabapentin 100 MG CAPSULE PO SCH ×2 (16:26→20:24)
[2018-08-08] MEDS: predniSONE 20 MG TABLET PO SCH (16:26)
[2018-08-08] MEDS: amLODIPine 5 MG TABLET PO SCH (20:24)
[2018-08-08] MEDS: Fluticasone Propionate Nasal 50 MCG/SPRAY BOTTLE NS SCH (21:36)
[2018-08-08] MEDS: *HR* HYDROcodone/Acet 5/325 mg TABLET PO PRN (21:38)
[2018-08-09] MEDS: *HR* Heparin 5,000 UNIT/ML VIAL SQ SCH (05:01)
[2018-08-09 06:23] LABS: Basophils % 0.2 %; Hematocrit 42.9 % (37.5-50.1); Hemoglobin 14.9 g/dL (12.9-16.9); Immature Granulocytes % 0.4 % (0-4); Lymphocytes # 0.6 K/mcL (0.6-4.6); Lymphocytes % 6.6 %; Mean Corpuscular HGB Conc 34.7 g/dL (31.6-35.5); Mean Corpuscular Hemoglobin 30.9 pg (28.0-33.3); Mean Platelet Volume 10.9 fL (9.4-12.4); Monocytes # 0.3 K/mcL (0.0-1.3); Monocytes % 3.6 %; Neutrophils # 7.9 K/mcL (1.6-8.9); Platelet Count 201 K/mcL (140-400); Red Blood Count 4.82 M/mcL (4.19-5.50); Red Cell Distribution Width 11.9 % (11.5-14.5); Segmented Neutrophils % 89.2 %
[2018-08-09 06:59] LABS: BUN/Creatinine Ratio 22 (6-26); Blood Urea Nitrogen 23 mg/dL (6-20); Calcium 9.6 mg/dL (8.6-10.3); Carbon Dioxide 23 mEq/L (23-29); Chloride 105 mEq/L (98-107); Glucose 133 mg/dL (70-105); Magnesium 2.1 mg/dL (1.6-2.6); Osmolality,Calculated 288 (280-300); Potassium 4.4 mEq/L (3.5-5.1); Sodium 136 mEq/L (136-145); eGFR For Non-African Americans > 60 (> 60)
[2018-08-09] MEDS ORDERED: Furosemide 40 MG TABLET PO SCH (09:00)
[2018-08-09] MEDS: predniSONE 20 MG TABLET PO SCH (09:22)
[2018-08-09] MEDS: Gabapentin 100 MG CAPSULE PO SCH (09:23)
[2018-08-09] MEDS: Isosorbide MONOnitrate (24 HR) 30 MG TAB.ER.24H PO SCH (09:23)
--- NOTE | 2018-08-09 09:24 | Neurology Progress Note ---
<Naveed Adams J - Last Filed: 08/09/18 09:19> Date of Encounter: 08/09/18 Time of Encounter: 09:19 Assessment and Plan (1) Weakness Current Visit: Yes Status: Acute Patient seen and examined at bedside today for follow-up for weakness/numbness in bilateral hands and headache. He reports that all symptoms have resolved this morning. The neurological exam is nonfocal. Neuroimaging unremarkable for acute ischemic event. I do not suspect that he has had an acute neurovascular event. At this juncture we are not recommending any additional neurologic studies. He can continue with Lipitor and Plavix which she was taking previously. In regards to the left occipital temporal headaches and tenderness I believe that this is most consistent with occipital neuralgia. The patient was started on steroids and gabapentin yesterday and reports significant improvement. He will need these at discharge. As such, we suggest continuing with this conservative treatment and following up in the neurology clinic as an outpatient for possible occipital nerve block. Please ensure follow-up in 3-4 weeks. Neurology will sign out. He is okay to DC at the discretion of the primary team (2) Occipital neuralgia Current Visit: Yes Status: Acute Qualifiers: Laterality: left Qualified Code(s): M54.81 - Occipital neuralgia Subjective Principal diagnosis: weakness and occipital neuralgia Interval history: Patient seen in f/u for bilateral hand weakness and tingling. Also to eval for h/a. All sx have resolved as of this morning and the patient reports that he is back to baseline. Neuro exam is non focal. Headaches have resolved. Objective - Constitutional Vitals: Temp Pulse Resp BP Pulse Ox 97.6 F 66 16 127/80 94 08/09/18 07:17 08/09/18 07:17 08/09/18 07:17 08/09/18 07:17 08/09/18 07:17 Exam: Examination: General Examination: *CONSTITUTIONAL: Alert and oriented x3, no acute distress *GENERAL APPEARANCE OF PATIENT obese but appears healthy and well groomed *EYES: pupils equal, round, reactive to light and accommodation, conjunctiva clear without masses or ulcerations, fundi normal. *CARDIOVASCULAR no peripheral edema, distal temperature normal, dorsalis pedis pulses normal. 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 No abnormal movements, fasciculations or atrophy identified. Neurological: *ORIENTATION to person, situation, time and place *RECURRENT AND REMOTE MEMORY intact *ATTENTION AND CONCENTRATION are normal *LANGUAGE FUNCTION no significant aphasia or dysarthia was noted. *FUND OF KNOWLEDGE aware of current events, past history, vocabulary *MENTAL attention span and concentration normal. *CN II optic fundi were normal, no papilledema noted. *CN III,IV, PERRLA extraocular eye movements were full, no nystagmus and no ptosis noted. *CN V shows normal sensation and jaw opens symmetrically. *CN VII shows normal facial movement symmetrically, upper and lower bilaterally. *CN VIII shows no significant hearing loss on exam *CN IX,,X palate elevated symmetrically *CN XI normal strength in the sternocleidomastoid muscles, symmetrical shoulder shrugging. *CN XII tongue protruded in the midline, with normal strength and movement. *SENSORY EXAMINATION light touch intact *REFLEXES: deep tendon reflexes were normal and symmetrical , grade 2/4 diffusely, no pathological reflexes were noted. *CEREBELLAR TESTING normal finger to nose, heel/knee/anderson *PAIN LEVEL 0/10 Results - Laboratory Findings CBC and BMP: 08/09/18 05:26 08/09/18 05:26 Abnormal lab findings: Abnormal lab results Chloride 108 mEq/L (98-107) H 08/08/18 00:23 BUN 23 mg/dL (6-20) H 08/09/18 05:26 Glucose 133 mg/dL (70-105) H 08/09/18 05:26 POC Glucose 122 mg/dL (70-99) H 08/07/18 11:22 5.7 % (-5.6) H 08/08/18 00:23 1.2 mg/dL (0.3-1.0) H 08/08/18 00:23 28 mg/dL (40-59) L 08/08/18 00:23 Consult Discharge Plan - Plan Referrals: Cali Molina MD [Primary Care Provider] - 08/15/18 9:15 am () <Basilia Nuñez I - Last Filed: 08/09/18 11:01> Date of Encounter: 08/09/18 Assessment and Plan (1) Weakness Current Visit: Yes Status: Acute I have personally performed a face to face diagnostic evaluation, including HPI, EXAM, which is included in the Assesment and plan, which was discussed with Naveed Adams CNP, I agree with the above outlined documentation. Basilia Nuñez MD. NeurologyI (2) Occipital neuralgia Current Visit: Yes Status: Acute Qualifiers: Laterality: left Qualified Code(s): M54.81 - Occipital neuralgia Objective - Constitutional Vitals: Temp Pulse Resp BP Pulse Ox 97.7 F 61 16 126/77 99 08/09/18 10:26 08/09/18 10:26 08/09/18 10:26 08/09/18 10:26 08/09/18 10:26 Results - Laboratory Findings CBC and BMP: 08/09/18 05:26 08/09/18 05:26 Abnormal lab findings: Abnormal lab results Chloride 108 mEq/L (98-107) H 08/08/18 00:23 BUN 23 mg/dL (6-20) H 08/09/18 05:26 Glucose 133 mg/dL (70-105) H 08/09/18 05:26 POC Glucose 122 mg/dL (70-99) H 08/07/18 11:22 5.7 % (-5.6) H 08/08/18 00:23 1.2 mg/dL (0.3-1.0) H 08/08/18 00:23 28 mg/dL (40-59) L 08/08/18 00:23
[2018-08-09 10:29] VITALS: BP 126/77
--- NOTE | 2018-08-09 12:55 | Discharge Summary ---
- NOTES TO OUTPATIENT PROVIDER Notes to Outpatient Provider: Pt admitted for occipital headaches consistent with occipital neuralgia. He was started on Prednisone and Gabapentin by neurology. Please advise the patient on the duration of Gabapentin during his next follow up appointment. Date of Encounter: 08/09/18 Time of Encounter: 12:53 - Discharge Diagnosis (1) Occipital neuralgia Priority: Primary Status: Acute Qualifiers: Laterality: left Qualified Code(s): M54.81 - Occipital neuralgia (2) CAD (coronary artery disease) Priority: Secondary Status: Chronic Qualifiers: Coronary Disease-Associated Artery/Lesion type: [place] artery Associated angina: with stable angina Qualified Code(s): I25.118 - Atherosclerotic heart disease of [place] coronary artery with other forms of angina pectoris (3) HLD (hyperlipidemia) Priority: Secondary Status: Chronic Qualifiers: Hyperlipidemia type: unspecified Qualified Code(s): E78.5 - Hyperlipidemia, unspecified (4) HTN (hypertension) Priority: Secondary Status: Chronic Qualifiers: Qualified Code(s): I10 - Essential (primary) hypertension (5) Obesity (BMI 30-39.9) Priority: Secondary Status: Chronic (6) Peripheral edema Priority: Secondary Status: Resolved Hospital course: Mr. Tracy is a 53 year old male with PMH of HTN, CAD, HLD, obesity, CVA with residual left sided weakness, CHF, COPD who presents to the ER for evaluation of worsening left sided headache and bilateral hand numbness who was admitted for further workup to r/o TIA vs. CVA. Pt was followed by neurology and was further diagnosed with occipital neuralgia given clinical findings. Pt was started on Prednisone and Gabapentin, to which he responded appropriately. He was also noted to have worsening of b/l pedal edema for which he was started on IV Lasix. He reports significant improvement and reports complete resolution of his presenting symptoms. He is currently resting comfortably in bed and denies any headache, weakness at this time. He is medically stable for discharge to home with outpatient follow up with PCP and neurology. Pt was seen and examined on the day of discharge. All questions were answered. Pt in agreement with the discharge care and plan. Discharge discussed with: patient, nurse, social work - Time Spent with Patient Total time spent providing and/or coordinating discharge services: 25 minutes Time spent: Less than 30 minutes - Discharge Medications Prescriptions: New Gabapentin [Neurontin] 100 mg PO TID #60 capsule predniSONE [PredniSONE] 40 mg PO DAILY #3 tablet Continued Clopidogrel [Plavix] 75 mg PO HS Albuterol Sulfate [Ventolin Hfa] 2 puff IH Q6H PRN PRN Reason: Shortness Of Breath Atorvastatin [Lipitor] 40 mg PO HS Amlodipine Besylate 10 mg PO HS Fluticasone Propionate Nasal [Flonase] 2 spray NS HS Furosemide [Lasix] 20 mg PO QAM Isosorbide MONOnitrate (24 HR) [Imdur] 30 mg PO QAM Metoprolol Succinate [Toprol Xl] 50 mg PO QAM Home Medications: Albuterol Sulfate [Ventolin Hfa] 2 puff IH Q6H PRN 05/22/17 [History] Atorvastatin [Lipitor] 40 mg PO HS 05/22/17 [History] Clopidogrel [Plavix] 75 mg PO HS 05/22/17 [History] Amlodipine Besylate 10 mg PO HS 08/07/18 [History] Fluticasone Propionate Nasal [Flonase] 2 spray NS HS 08/07/18 [History] Furosemide [Lasix] 20 mg PO QAM 08/07/18 [History] Isosorbide MONOnitrate (24 HR) [Imdur] 30 mg PO QAM 08/07/18 [History] Metoprolol Succinate [Toprol Xl] 50 mg PO QAM 08/07/18 [History] Gabapentin [Neurontin] 100 mg PO TID #60 capsule 08/09/18 [Rx] predniSONE [PredniSONE] 40 mg PO DAILY #3 tablet 08/09/18 [Rx] Allergies/Adverse Reactions: Allergy/AdvReac Type Severity Reaction Status Date / Time aspirin [ASA] AdvReac UPSET Verified 08/07/18 16:08 STOMACH/ THROAT CLOSES UP Date of admission: 08/07/18 13:52 Primary care physician: Cali Molina MD Consults: 08/07/18 15:38 Consult to Neurology [CONS] Routine Consulting Provider: Neurology [facility] Reason for Consult: TIA Call Completed: No 08/07/18 15:39 Consult to Occupational Therapy [CONS] Routine Comment: Evaluate, develop and implement POC Reason for Consult: TIA/CVA Does patient have active BEDREST order?: No Is patient medically & hemodynamically stable?: Yes Patient assessed for mobility or mobilized this visit?: Yes Consult to Physical Therapy [CONS] Routine Comment: Evaluate, develop and implement POC Reason for Consult: TIA/CVA Does patient have active BEDREST order?: No Is patient medically & hemodynamically stable?: Yes Patient assessed for mobility or mobilized this visit?: Yes Discharging clinician: Yani Fields Anticipated date of discharge: 08/09/18 - Constitutional Vitals: Temp Pulse Resp BP Pulse Ox 97.7 F 61 16 126/77 99 08/09/18 10:26 08/09/18 10:26 08/09/18 10:26 08/09/18 10:08/09/18 10:26 Exam: General: No acute distress, AAO x 3, obese HEENT: EOMI, PERRLA, NC/AT, no scleral icterus Respiratory: Clear to auscultate bilaterally, no wheezing, no rales Cardiovascular: Regular, Rate, Rhythm, No murmurs GI: Soft, Non tender, non distended, normal bowel sounds Ext: trace edema, no tenderness, positive pulses Neuro: AAO x 3, CN II-XII grossly intact Rest of the clinical exam is noncontributory - Patient Status Disposition: Home, Self-Care Condition: Good Functional capacity at discharge: independent ambulation Overall status at discharge: patient is back to baseline - Discharge Instructions Follow Up With: Cali Molina MD [Primary Care Provider] - 08/15/18 9:15 am () Additional Instructions: 1. Please follow up with your primary care physician within five days after your discharge from the hospital. 2. Please follow up with neurology within 3-4 weeks after your discharge from the hospital. 3. Please continue Prednisone for 3 more days. 4. Please continue Gabapentin as prescribed and ask your PCP and Neurologist about the duration of this medication 5. Resume all other home medications as prescribed by your primary care physician. - Diet and Activity Activity: resume usual activities as tolerated Diet: low fat, low cholesterol, low salt diet
== END 2018-08-09 14:19 | disposition home or self-care (01) ==
LOC: EMEROOARM 11:16 → 3BNU 11:16 → SUATTDRO 13:52 → 3BNU 15:39
PROVIDERS: ADMIT Internal Medicine Nephrology; ATTEND Internal Medicine

== ENCOUNTER 2019-08-29 09:50 | Observation (INO) ==
[2019-08-29] MEDS ORDERED: Isovue-370 500 ML BOTTLE IVP ONE ×2 (10:05→10:06)
[2019-08-29] MEDS ORDERED: Ipratropium/Albuterol Neb 3 ML IH ONE (10:05)
[2019-08-29] MEDS ORDERED: methylPREDNISolone 125 MG/2 ML VIAL IVP ONE (10:05)
[2019-08-29 10:29] LABS: Basophils % 0.8 %; Eosinophils # 0.2 K/mcL (0.0-0.6); Eosinophils % 3.1 %; Hematocrit 45.1 % (37.5-50.1); Hemoglobin 15.6 g/dL (12.9-16.9); Immature Granulocytes % 0.2 % (0-4); Lymphocytes # 1.3 K/mcL (0.6-4.6); Mean Corpuscular HGB Conc 34.6 g/dL (31.6-35.5); Mean Corpuscular Hemoglobin 30.6 pg (28.0-33.3); Mean Corpuscular Volume 88.6 fL (83.0-100.0); Mean Platelet Volume 11.4 fL (9.4-12.4); Monocytes # 0.6 K/mcL (0.0-1.3); Monocytes % 13.1 %; Neutrophils # 2.8 K/mcL (1.6-8.9); Platelet Count 203 K/mcL (140-400); Red Blood Count 5.09 M/mcL (4.19-5.50); Red Cell Distribution Width 12.3 % (11.5-14.5); Segmented Neutrophils % 56.8 %; White Blood Count 4.9 K/mcL (4.3-11.1)
[2019-08-29 10:40] LABS: Prothrombin Time 11.2 Seconds (9.4-12.1)
[2019-08-29 10:43] LABS: Activated Partial Thrombo Time 25.9 Seconds (26.0-36.0)
[2019-08-29 11:16] LABS: Alanine Aminotransferase 26 Units/L (7-52); Albumin 4.7 g/dL (3.5-5.7); Albumin/Globulin Ratio 1.6 (1.1-2.2); Alkaline Phosphatase 94 Units/L (34-104); Aspartate Amino Transferase 25 Units/L (13-39); BUN/Creatinine Ratio 13 (6-26); Bilirubin,Direct 0.1 mg/dL (0.0-0.2); Bilirubin,Total 1.1 mg/dL (0.3-1.0); Blood Urea Nitrogen 13 mg/dL (6-20); Calcium 9.4 mg/dL (8.6-10.3); Carbon Dioxide 23 mEq/L (23-29); Chloride 105 mEq/L (98-107); Globulin 2.9 g/dL (2.4-3.5); Glucose 123 mg/dL (70-105); Lipase 30 Units/L (11-82); Osmolality,Calculated 287 (280-300); Potassium 3.6 mEq/L (3.5-5.1); Sodium 138 mEq/L (136-145); Total Protein 7.6 g/dL (6.4-8.9); Troponin I < 0.03 ng/mL (< 0.04); eGFR For African Americans > 60 (> 60); eGFR For Non-African Americans > 60 (> 60)
[2019-08-29 13:27] LABS: Bilirubin,Urine Negative (Negative); Blood,Urine Negative (Negative); Clarity,Urine Clear (Clear); Color,Urine Yellow (Yellow); Glucose,Urine (UA) Normal (Normal); Ketones,Urine Negative (Negative); Leukocyte Esterase,Urine Negative (Negative); Nitrite,Urine Negative (Negative); PH,Urine 6.5 pH Units (5.0-8.0); Protein,Urine Negative (Neg-Trace); Specific Gravity,Urine 1.011 (1.010-1.025); Urobilinogen,Urine Normal (Normal)
[2019-08-29] MEDS ORDERED: Nitroglycerin 1 INCH/GM PACKET TP ONE (13:31)
[2019-08-29] MEDS ORDERED: Budesonide/Formoterol 160/4.5 1 PUFF INH IH PRN (15:38)
[2019-08-29] MEDS ORDERED: Naloxone 0.4 MG/ML INJ IVP PRN (15:42)
[2019-08-29] MEDS ORDERED: Mag Hydrox/Al Hydrox/Simeth 30 ML UDC PO PRN (15:42)
[2019-08-29] MEDS ORDERED: Ondansetron 4 MG/2 ML VIAL IVP PRN (15:42)
[2019-08-29] MEDS ORDERED: MOM Conc 10 ML UD.LIQ PO PRN (15:42)
[2019-08-29] MEDS ORDERED: Acetaminophen 325 MG TABLET PO PRN (15:42)
[2019-08-29] MEDS ORDERED: *HR* Promethazine 25 MG/ML VIAL IVP PRN (15:42)
[2019-08-29] MEDS: Metoprolol XL (24 HR) Succ 50 MG TAB.ER.24H PO SCH (16:35)
[2019-08-29] MEDS: *HR* Heparin 5,000 UNIT/ML VIAL SQ SCH (16:35)
[2019-08-29] MEDS: Gabapentin 100 MG CAPSULE PO SCH (20:09)
[2019-08-29] MEDS: *HR* HYDROcodone/Acet 7.5/325 mg TABLET PO PRN (23:17)
[2019-08-29] MEDS ORDERED: Morphine Sulfate 2 MG/ML SYRINGE IVP ONE (23:45)
[2019-08-30] MEDS: *HR* Heparin 5,000 UNIT/ML VIAL SQ SCH ×2 (05:06→17:47)
[2019-08-30 05:37] LABS: Basophils % 0.1 %; Hematocrit 40.5 % (37.5-50.1); Hemoglobin 13.9 g/dL (12.9-16.9); Immature Granulocytes % 0.7 % (0-4); Lymphocytes # 0.8 K/mcL (0.6-4.6); Lymphocytes % 5.1 %; Mean Corpuscular HGB Conc 34.3 g/dL (31.6-35.5); Mean Corpuscular Hemoglobin 30.6 pg (28.0-33.3); Mean Corpuscular Volume 89.2 fL (83.0-100.0); Mean Platelet Volume 11.5 fL (9.4-12.4); Monocytes # 0.8 K/mcL (0.0-1.3); Monocytes % 5.3 %; Neutrophils # 13.3 K/mcL (1.6-8.9); Platelet Count 198 K/mcL (140-400); Red Blood Count 4.54 M/mcL (4.19-5.50); Red Cell Distribution Width 12.5 % (11.5-14.5); Segmented Neutrophils % 88.8 %
[2019-08-30 05:57] LABS: BUN/Creatinine Ratio 19 (6-26); Blood Urea Nitrogen 19 mg/dL (6-20); Calcium 9.4 mg/dL (8.6-10.3); Carbon Dioxide 23 mEq/L (23-29); Chloride 107 mEq/L (98-107); Chol/HDL Ratio 4.8 (0-4.9); Cholesterol 164 mg/dL (< 200); Glucose 126 mg/dL (70-105); HDL Cholesterol 34 mg/dL (40-59); LDL Cholesterol,Calculated 104 mg/dL (0-99); Osmolality,Calculated 288 (280-300); Potassium 4.1 mEq/L (3.5-5.1); Sodium 137 mEq/L (136-145); Triglycerides 132 mg/dL (< 150); eGFR For African Americans > 60 (> 60); eGFR For Non-African Americans > 60 (> 60)
[2019-08-30] MEDS ORDERED: Regadenoson 0.4 MG/5 ML SYRINGE IVP ONE (06:40)
[2019-08-30] MEDS: Isosorbide MONOnitrate (24 HR) 30 MG TAB.ER.24H PO SCH (10:25)
[2019-08-30] MEDS: amLODIPine 5 MG TABLET PO SCH (10:25)
[2019-08-30] MEDS: Gabapentin 100 MG CAPSULE PO SCH ×2 (10:25→20:34)
[2019-08-30] MEDS: Furosemide 20 MG TABLET PO SCH (10:25)
[2019-08-30] MEDS: Metoprolol XL (24 HR) Succ 50 MG TAB.ER.24H PO SCH (17:47)
[2019-08-30] MEDS: *HR* HYDROcodone/Acet 7.5/325 mg TABLET PO PRN (22:38)
[2019-08-31] MEDS: *HR* Heparin 5,000 UNIT/ML VIAL SQ SCH (05:54)
[2019-08-31 06:17] LABS: Basophils % 0.4 %; Eosinophils % 0.4 %; Hematocrit 40.6 % (37.5-50.1); Hemoglobin 13.5 g/dL (12.9-16.9); Immature Granulocytes % 0.3 % (0-4); Lymphocytes # 1.9 K/mcL (0.6-4.6); Lymphocytes % 25.2 %; Mean Corpuscular HGB Conc 33.3 g/dL (31.6-35.5); Mean Corpuscular Hemoglobin 30.6 pg (28.0-33.3); Mean Corpuscular Volume 92.1 fL (83.0-100.0); Mean Platelet Volume 11.1 fL (9.4-12.4); Monocytes # 0.6 K/mcL (0.0-1.3); Monocytes % 7.4 %; Neutrophils # 5.1 K/mcL (1.6-8.9); Platelet Count 162 K/mcL (140-400); Red Blood Count 4.41 M/mcL (4.19-5.50); Segmented Neutrophils % 66.3 %; White Blood Count 7.6 K/mcL (4.3-11.1)
[2019-08-31] MEDS: amLODIPine 5 MG TABLET PO SCH (09:44)
[2019-08-31] MEDS: Gabapentin 100 MG CAPSULE PO SCH (09:45)
[2019-08-31] MEDS: Isosorbide MONOnitrate (24 HR) 30 MG TAB.ER.24H PO SCH (09:45)
[2019-08-31] MEDS: Furosemide 20 MG TABLET PO SCH (09:45)
[2019-08-31 11:10] VITALS: BP 136/86
== END 2019-08-31 15:48 | disposition home or self-care (01) ==
LOC: EMEROOARM 09:50 → 3BNU 09:50
PROVIDERS: ADMIT Internal Medicine; ATTEND Internal Medicine